=== PATIENT | male | born 1935 | race Caucasian/White ===

== ENCOUNTER → 2019-05-20 08:24 | Outpatient (CLI) | payer OTHER ==
[2012-10-12 09:23] VITALS: BMI 21.9
== END | disposition home or self-care (01) ==
LOC: D.US 08:24
PROVIDERS: ATTEND Nurse Practitioner Family
DX: N18.3 Chronic kidney disease, stage 3 (moderate) (principal)

== ENCOUNTER → 2020-06-24 09:58 | Outpatient (CLI) | payer MEDICARE ==
[2012-10-12 09:23] VITALS: BMI 21.9
== END | disposition home or self-care (01) ==
LOC: D.US 09:58
PROVIDERS: ATTEND Internal Medicine Nephrology
DX: N18.3 Chronic kidney disease, stage 3 (moderate) (principal); R93.422 Abnormal radiologic findings on diagnostic imaging of left kidney

== ENCOUNTER → 2021-01-11 09:16 | Outpatient (CLI) | payer MEDICARE ==
[2012-10-12 09:23] VITALS: BMI 21.9
== END | disposition home or self-care (01) ==
LOC: D.MRI 09:16
PROVIDERS: ATTEND Internal Medicine Nephrology
DX: R93.422 Abnormal radiologic findings on diagnostic imaging of left kidney (principal); N18.30 Chronic kidney disease, stage 3 unspecified